=== PATIENT | female | born 1940 | race Two or more races ===

== ENCOUNTER 2017-02-10 05:59 | Emergency (ER) | payer OTHER ==
[~2017-02-10] VITALS: Ht 149.9 cm; Wt 98.9 kg
[~2017-02-10 05:59] MED LIST: ALB5IS NEB; ASPI81CH43 PO; BENZ100C97 PO; DEXT1SYP6 PO; DOXY1CAP82 PO; GABA-339 PO; IMI25T PO; IPRASOL39 IN; LEVO112T4 PO; LEVO125T7 PO; LEVO250T69 PO; LORA-354 PO; LOSA25TA9 PO; LOVA20TA63 PO; METF-370 PO; METH4PAK PO; OMEP20TA34 PO; PRED1PAK10 PO; TRIATAB3 PO
[2017-02-10 06:51] LABS: Albumin 3.5 g/dL (3.4-5.0); Anion Gap 8 (5-15); Aspartate Aminotransferase 13 U/L (15-37); BUN/Creatinine Ratio 16.9; Blood Urea Nitrogen 14 mg/dL (7-18); Calcium 8.5 mg/dL (8.5-10.1); Carbon Dioxide 27 mmol/L (21-32); Chloride 105 mmol/L (98-107); GFR African American 86 mL/min; GFR Non-African American 71 mL/min; Glucose 99 mg/dL (74-106); Potassium 3.9 mmol/L (3.5-5.1); Sodium 140 mmol/L (136-145)
[2017-02-10 06:56] LABS: Alkaline Phosphatase 71 U/L (45-117); Bilirubin, Total 0.8 mg/dL (0.2-1.0); Total Protein 7.2 g/dL (6.4-8.2)
[2017-02-10 07:30] VITALS: BP 140/71
[2017-02-10 07:31] LABS: Urine RBC None Seen /hpf (0 - 4)
[2017-02-10 07:40] LABS: Basophils # (auto) 0.1 uL; Basophils % (auto) 0.8 % (0.0-2.0); Eosinophils # (auto) 0.3 uL; Eosinophils % (auto) 4.5 % (0.0-7.0); Hematocrit 39.5 % (36.0-46.0); Lymphocytes # (auto) 2.1 uL; Lymphocytes % (auto) 29.3 % (10.0-50.0); Mean Corpuscular Hemoglobin 29.3 pg (28.0-32.0); Mean Corpuscular Hgb Conc. 32.9 g/dL (32.0-36.0); Mean Platelet Volume 7.5 fL (6.9-10.8); Monocytes # (auto) 0.6 uL; Monocytes % (auto) 8.3 % (0.0-12.0); Neutrophils # (auto) 4.2 uL; Neutrophils % (auto) 57.1 % (37.0-80.0); Nucleated Red Blood Cells % 0.1 %; Platelet Count (auto) 223 10^3/uL (140-450); Red Cell Distribution Width 14.5 % (11.8-14.3); White Blood Cell 7.3 10^3/uL (4.4-10.8)
[2017-02-10 07:40] LABS: Urine Bilirubin Negative (Negative); Urine Blood Negative /uL (Negative); Urine Color Yellow (Yellow); Urine Glucose Normal (Normal); Urine Ketone Negative (Negative); Urine Nitrite Negative (Negative); Urine Squamous Epithelial Cell FEW /hpf (<5); Urine Urobilinogen Normal (Negative)
[2017-02-10] MEDS ORDERED: SODIUM CHLORIDE 0.9% 1,000 ML IV ONE (07:55)
[2017-02-10] MEDS ORDERED: IPRATROPIUM BROM 0.5 MG/2.5ML INH SOL NEB ONE (08:00)
[2017-02-10] MEDS ORDERED: ALBUTEROL SULF 2.5 MG/0.5ML(0.5%) NEB SOLN NEB ONE (08:00)
== END 2017-02-10 10:23 | disposition home or self-care (01) ==
LOC: ER 06:05
DX: J45.901 Unspecified asthma with (acute) exacerbation (principal); E66.01 Morbid (severe) obesity due to excess calories; E11.9 Type 2 diabetes mellitus without complications; K21.9 Gastro-esophageal reflux disease without esophagitis; E78.5 Hyperlipidemia, unspecified; I10 Essential (primary) hypertension; E07.89 Other specified disorders of thyroid; Z68.41 Body mass index [BMI] 40.0-44.9, adult
CPT/HCPCS: 36415; 71020; 80053; 81001; 83735; 84443; 84484; 85025; 93005; 94640; 94761; 96360; 96361; 99285; J7030

== ENCOUNTER 2018-05-17 15:47 | Emergency (ER) | payer OTHER ==
[~2018-05-17] VITALS: Ht 157.5 cm; Wt 96.2 kg
[~2018-05-17 15:47] MED LIST changes: +DOXY-338 PO; -DOXY1CAP82 PO; +LOSA25TA40 PO; -LOSA25TA9 PO; -LOVA20TA63 PO; +[UNRECOGNIZED DRUG - CODE] PO
[2018-05-17 16:39] LABS: Basophils # (auto) 0 uL; Basophils % (auto) 0.5 % (0.0-2.0); Eosinophils # (auto) 0.1 uL; Eosinophils % (auto) 1.9 % (0.0-7.0); Hematocrit 41.6 % (36.0-46.0); Hemoglobin 13.6 g/dL (12.2-16.2); Lymphocytes # (auto) 1.8 uL; Lymphocytes % (auto) 25.4 % (10.0-50.0); Mean Corpuscular Hemoglobin 28.9 pg (28.0-32.0); Mean Corpuscular Hgb Conc. 32.7 g/dL (32.0-36.0); Mean Corpuscular Volume 88.4 fL (80.0-100.0); Monocytes # (auto) 0.7 uL; Monocytes % (auto) 9.6 % (0.0-12.0); Neutrophils # (auto) 4.5 uL; Neutrophils % (auto) 62.6 % (37.0-80.0); Nucleated Red Blood Cells % 0.1 %; Platelet Count (auto) 251 10^3/uL (140-450); Red Cell Distribution Width 14.3 % (11.8-14.3); White Blood Cell 7.1 10^3/uL (4.4-10.8)
[2018-05-17 16:40] LABS: Urine Bacteria NONE SEEN /hpf (None Seen); Urine Blood Negative /uL (Negative); Urine Specific Gravity 1.013 (1.001-1.035); Urine WBC 1 /hpf (0 - 5)
[2018-05-17 16:46] LABS: Alanine Aminotransferase 23 U/L (13-56); Albumin 3.2 g/dL (3.4-5.0); Anion Gap 3 (5-15); Blood Urea Nitrogen 15 mg/dL (7-18); Calcium 8.9 mg/dL (8.5-10.1); Carbon Dioxide 32 mmol/L (21-32); Chloride 105 mmol/L (98-107); Glucose 97 mg/dL (74-106); Potassium 4.1 mmol/L (3.5-5.1); Sodium 140 mmol/L (136-145)
[2018-05-17 16:51] LABS: Alkaline Phosphatase 71 U/L (45-117); Aspartate Aminotransferase 15 U/L (15-37); BUN/Creatinine Ratio 16.5; Bilirubin, Total 0.5 mg/dL (0.2-1.0); GFR African American 77 mL/min; GFR Non-African American 64 mL/min; Total Protein 7.1 g/dL (6.4-8.2)
[2018-05-17] MEDS ORDERED: ASPirin-EC 81 mg tab PO ONE (17:45)
[2018-05-17] MEDS ORDERED: IOHEXOL 350 MG/ML 100ML IJ ONE (19:08)
[2018-05-17 22:00] VITALS: BP 148/58
== END 2018-05-17 21:55 | disposition home or self-care (01) ==
LOC: ER 15:48
DX: R07.9 Chest pain, unspecified (principal); J44.9 Chronic obstructive pulmonary disease, unspecified; E11.9 Type 2 diabetes mellitus without complications; K21.9 Gastro-esophageal reflux disease without esophagitis; E78.5 Hyperlipidemia, unspecified; I10 Essential (primary) hypertension; E07.9 Disorder of thyroid, unspecified; Z88.5 Allergy status to narcotic agent; Z88.0 Allergy status to penicillin; Z79.82 Long term (current) use of aspirin; Z79.899 Other long term (current) drug therapy
CPT/HCPCS: 36415; 71046; 71275; 80053; 81001; 83880; 84484; 85025; 85379; 93005; 99284; Q9967

== ENCOUNTER 2018-11-07 23:57 | Emergency (ER) | payer OTHER ==
[~2018-11-07] VITALS: Ht 157.5 cm; Wt 79.4 kg
[~2018-11-07 23:57] MED LIST changes: +LOSA25TA38 PO; -LOSA25TA40 PO; +OMEP-337 PO; -OMEP20TA34 PO
[2018-11-08 00:23] VITALS: BP 142/38
[2018-11-08 01:43] LABS: Basophils # (auto) 0.1 uL; Basophils % (auto) 0.9 % (0.0-2.0); Eosinophils # (auto) 0.2 uL; Eosinophils % (auto) 2.8 % (0.0-7.0); Hematocrit 37.4 % (36.0-46.0); Lymphocytes # (auto) 2.7 uL; Mean Corpuscular Hemoglobin 29.7 pg (28.0-32.0); Mean Corpuscular Hgb Conc. 34.9 g/dL (32.0-36.0); Mean Corpuscular Volume 85.2 fL (80.0-100.0); Monocytes # (auto) 0.8 uL; Monocytes % (auto) 10.8 % (0.0-12.0); Neutrophils # (auto) 3.9 uL; Neutrophils % (auto) 50.5 % (37.0-80.0); Nucleated Red Blood Cells % 0.1 %; Platelet Count (auto) 207 10^3/uL (140-450); Red Blood Cells 4.39 10^6/uL (4.0-5.20); Red Cell Distribution Width 13.9 % (11.8-14.3); White Blood Cell 7.7 10^3/uL (4.4-10.8)
[2018-11-08 02:02] LABS: Urine Bacteria NONE SEEN /hpf (None Seen); Urine Blood Negative /uL (Negative); Urine Hyaline Cast MOD /lpf (0 - 2); Urine Specific Gravity 1.019 (1.001-1.035); Urine WBC 1 /hpf (0 - 5)
[2018-11-08 02:07] LABS: Alanine Aminotransferase 18 U/L (13-56); Albumin 3.8 g/dL (3.4-5.0); Anion Gap 9 (5-15); Aspartate Aminotransferase 18 U/L (15-37); BUN/Creatinine Ratio 17.2; Blood Urea Nitrogen 33 mg/dL (7-18); Calcium 7.8 mg/dL (8.5-10.1); Carbon Dioxide 28 mmol/L (21-32); Chloride 94 mmol/L (98-107); GFR African American 33 mL/min; GFR Non-African American 27 mL/min; Glucose 96 mg/dL (74-106); Potassium 3.8 mmol/L (3.5-5.1); Sodium 131 mmol/L (136-145)
[2018-11-08 02:12] LABS: Alkaline Phosphatase 59 U/L (45-117); Bilirubin, Total 1.1 mg/dL (0.2-1.0); INR < 0.93 (0.9-1.15); Total Protein 7.1 g/dL (6.4-8.2)
== END 2018-11-08 05:38 | disposition left against medical advice (07) ==
LOC: ER 11-08
DX: R07.2 Precordial pain (principal); Z53.21 Procedure and treatment not carried out due to patient leaving prior to being seen by health care provider
CPT/HCPCS: 36415; 71045; 80053; 81001; 83880; 84484; 85025; 85610; 85730; 93005

== ENCOUNTER 2024-06-11 09:22 | Inpatient (IN) | payer OTHER, MEDICAID ==
[2024-06-11] VITALS (12 sets, daily range): BP systolic 113–153; BP diastolic 34–74; PULSE 55–75; RESP 13–20; TEMP 97.2–98.3; O2SAT 94–99
[~2024-06-11] VITALS: Ht 154.9 cm; Wt 101.0 kg
[~2024-06-11 09:22] MED LIST changes: +ALBU0.636 IN; -DOXY-338 PO; +DOXY1CAP58 PO; -IMI25T PO; +IMIP25TA12 PO; +LEVO250T58 PO; -LEVO250T69 PO; +LOSA-533 PO; -LOSA25TA38 PO
[2024-06-11 10:51] LABS: Basophils # (auto) 0.1 10 ^3/uL (0-0.2); Basophils % (auto) 0.9 % (0.0-2.0); Eosinophils # (auto) 0.1 10 ^3/uL (0-0.8); Eosinophils % (auto) 1.7 % (0.0-7.0); Hematocrit 38.3 % (36.0-46.0); Hemoglobin 12.9 g/dL (12.2-16.2); Lymphocytes # (auto) 1.9 10 ^3/uL (0.4-5.4); Lymphocytes % (auto) 31.2 % (10.0-50.0); Mean Corpuscular Hemoglobin 29.6 pg (28.0-32.0); Mean Corpuscular Hgb Conc. 33.5 g/dL (32.0-36.0); Mean Corpuscular Volume 88.3 fL (80.0-100.0); Monocytes # (auto) 0.4 10 ^3/uL (0-1.3); Monocytes % (auto) 7.4 % (0.0-12.0); Neutrophils # (auto) 3.5 10 ^3/uL (1.6-8.6); Neutrophils % (auto) 58.8 % (37.0-80.0); Nucleated Red Blood Cells % 0.1 %; Platelet Count (auto) 220 10^3/uL (140-450); Red Blood Cells 4.34 10^6/uL (4.0-5.20); Red Cell Distribution Width 15.1 % (11.8-14.3)
--- NOTE | 2024-06-11 11:04 | ED.PDOC ---
History of Present Illness HPI Comments 83 y/o morbidly obese F, with a history of asthma, breast cancer, bronchitis, COPD, DM, GERD, HLD, HTN, PNA, and thyroid disease, is BIBA for c/o chest, back, left-arm, and head pain, today. Patient endorses on sudden and unprovoked onset of symptoms, this morning, at around 0000. She comments on back and left-arm pain radiating from her sternal chest area, where pain started, initially, with. Patient reports having no prior history of similar symptoms in the past along with no recent ailments, stressors, strenuous activities, or sick contact. She denies any shortness of breath, palpitations, nausea, vomiting, fever, chills, or other associated symptoms or modifiers at this time. Chief Complaint: Chest Pain Time Seen by MD: 10:15 Primary Care Provider: JOSSUE Reviewed Notes: Nurses Notes, Area Operations Director Notes, Medications, Allergies Allergies: Coded Allergies: Codeine (Verified Allergy, Unknown, 06/03/16) Penicillins (Verified Allergy, Unknown, 06/03/16) Home Meds Active Scripts Albuterol Sulfate (Albuterol Sulfate) 0.63 Mg/3 Ml Neb, 0.63 MG IN Q6HWA, #20 INH Prov:DINORAH GAGNON MD 02/04/19 Methylprednisolone (Medrol Dosepak) 4 Mg Ben, 4 MG PO DIRECTED, #1 PACK Prov:LINDSEY PENDLETON MD 06/08/16 Ipratropium [place] (Ipratropium [place]) Inhal Kindra, 0.5 MG IN Q6HPRN PRN, #120 DOSE Prov:LINDSEY PENDLETON MD 06/08/16 Dextromethorphan-Guaifenesin (Guaifenesin/Dextromethorp 10-100 mg/5Ml) 1 Syp Syp, 10 ML PO Q4HPRN PRN, #1 BOTTLE Prov:LINDSEY PENDLETON MD 06/08/16 Doxycycline (Monohydrate) (Doxycycline) 100 Mg Cap, 100 MG PO Q12HR, #14 CAP Prov:LINDSEY PENDLETON MD 06/08/16 Albuterol Sulfate (Ventolin) 2.5 Mg/0.5 Ml Nb, 2.5 MG NEB Q6HR, #120 DOSE Prov:LINDSEY PENDLETON MD 06/08/16 Levofloxacin Hemihydrate (LEVOFLOXACIN) 250 Mg Tab, 250 MG PO DAILY, #7 TAB Prov:DINORAH GAGNON MD 06/05/16 Prednisone (Prednisone) 10 Mg Ben, 10 MG PO DAILY, #10 TAB Prov:DINORAH GAGNON MD 06/05/16 Albuterol Sulfate (Ventolin) 2.5 Mg/0.5 Ml Nb, 2.5 MG NEB Q6HR PRN, #30 VIAL Prov:DINORAH GAGNON MD 06/05/16 Reported Medications Imipramine Hcl (Tofranil) 25 Mg Tb, 25 MG PO BID 06/07/16 Triamterene & Hydrochlorothiaz (Maxzide-25) Tab, 37.5 MG PO DAILY, TAB 06/07/16 Levothyroxine Sodium (Levothyroxine Sodium) 112 Mcg Tab, 112 MCG PO QAM for 30 Days, MCG 06/04/16 Benzonatate (Benzonatate) 100 Mg Cap, 1 CAP PO TID, #30 CAP 06/04/16 Gabapentin (Gabapentin) 600 Mg Tab, 1 TAB PO TID, #90 TAB 3 Refills 06/04/16 Loratadine (Sb Loratadine Allergy Rel) 10 Mg Tab, 10 MG PO DAILY, #30 TAB 5 Refills 06/04/16 Levothyroxine Sodium (Levothyroxine Sodium) 125 Mcg Tab, 1 TAB PO DAILY, #30 TAB 5 Refills 06/04/16 Losartan Potassium (Losartan Potassium) 25 Mg Tab, 50 MG PO DAILY 01/27/12 Lovastatin (Altoprev) 20 Mg Tab, 20 MG PO OD 01/27/12 Aspirin (Asa) 81 Mg Ch, 81 MG PO OD 01/27/12 Metformin Hydrochloride (Metformin Hcl) 500 Mg Tab, 500 MG PO DAILY 01/27/12 Omeprazole (Eq Omeprazole) 20 Mg Tab, 40 MG PO DAILY 08/10/11 Information Source: Patient, Emergency Med Personnel Mode of Arrival: EMS Severity: Moderate Timing: Hours Duration: Since onset Prehospital treatment: 12 Lead EKG, Accucheck (145), ASA (324mg), Office Coordinator, IVF (via 18G LAC) Past Medical History PAST MEDICAL HISTORY: Asthma, Cancer (breast cancer ), COPD, Depression, DM, GERD, High Lipids, HTN, Thyroid Past Medical History (Other): PNA bronchitis morbid obesity Surgical History (Other): right shoulder surgery FLAME CUTTER History: Denies all FLAME CUTTER Hx, No Pertinent FLAME CUTTER History Family History Family History: No family hx of Cancer, No family hx of DM, No family hx of Heart horace, No family hx ofKidney horace, No family hx of Liver horace, No family hx of Lung horace, No family hx of Stroke, Family hx of HTN Social History Smoker: Non-Smoker Alcohol: Denies ETOH Use Drugs: Denies Drug Use Lives In: Home All Other Systems: Reviewed and Negative (Comprehensive systems review obtained and negative except for what is stated in the HPI.) Physical Exam General Appearance: Moderate Distress HEENT: Normal ENT Inspection, Pharynx Normal, TMs Normal Neck: Full Range of Motion, Non-Tender, Normal, Normal Inspection Respiratory: Chest Non-Tender, Lungs Clear, No Accessory Muscle Use, No Respiratory Distress, Normal Breath Sounds Cardiovascular: No Edema, No JVD, No Murmur, No Gallop, Normal Peripheral Pulses, Regular Rate/Rhythm Breast Exam: Deferred Gastrointestinal: No Organomegaly, Non Tender, No Pulsatile Mass, Normal Bowel Sounds, Soft Genitalia: Deferred Pelvic: Deferred Rectal: Deferred Extremities: No calf tenderness, Normal range of motion, No pedal edema Musculoskeletal : Apperance: Normal Neurologic: Alert, No Motor Deficits, No Sensory Deficits Cerebellar Function: NOT DONE Reflexes: NOT DONE Skin: Dry, Normal Color, Warm Peripheral Pulses: 3+ Radial (R), 3+ Radial (L) Lymphatic: No Adenopathy Was a procedure done? Was a procedure done?: No EKG EKG #1: Pulse Rate (adult): 89 [place]: Normal Cardiac Rhythm: NSR Block: None Hypertrophy: None ST: Normal EKG #2: Pulse Rate (adult): 91 [place]: Normal Cardiac Rhythm: NSR Block: None Hypertrophy: None ST: Normal Differential Dx Considerations may include: CA, PE, ACS, URI, PNA, angina, anxiety, costochondritis, pericarditis, viral syndrome, gastritis, among others X-Ray, Labs, Meds, VS Vital Signs Date Time Temp Pulse Resp B/P (MAP) Pulse Ox O2 Delivery O2 Flow Rate FiO2 06/11/24 11:49 136/74 06/11/24 11:48 61 16 136/74 06/11/24 11:04 91 06/11/24 10:06 91 06/11/24 09:29 98.6 84 16 140/105 (117) 96 98.6 06/11/24 09:22 89 Lab Test 06/11/24 11:36 06/11/24 11:22 06/11/24 10:32 Range/Units White Blood Count 6.2 6.0 4.4-10.8 10^3/uL Red Blood Count 4.38 4.34 4.0-5.20 10^6/uL Hemoglobin 12.8 12.9 12.2-16.2 g/dL Hematocrit 39.1 38.3 36.0-46.0 % Mean Corpuscular Volume 89.3 88.3 80.0-100.0 fL Mean Corpuscular Hemoglobin 29.3 29.6 28.0-32.0 pg Mean Corpuscular Hemoglobin Concent 32.8 33.5 32.0-36.0 g/dL Red Cell Distribution Width 14.8 H 15.1 H 11.8-14.3 % Platelet Count 214 220 140-450 10^3/uL Mean Platelet Volume 6.9 6.9 6.9-10.8 fL Neutrophils (%) (Auto) 56.2 58.8 37.0-80.0 % Lymphocytes (%) (Auto) 32.5 31.2 10.0-50.0 % Monocytes (%) (Auto) 8.7 7.4 0.0-12.0 % Eosinophils (%) (Auto) 1.9 1.7 0.0-7.0 % Basophils (%) (Auto) 0.7 0.9 0.0-2.0 % Neutrophils # (Auto) 3.5 3.5 1.6-8.6 10 ^3/uL Lymphocytes # (Auto) 2.0 1.9 0.4-5.4 10 ^3/uL Monocytes # (Auto) 0.5 0.4 0-1.3 10 ^3/uL Eosinophils # (Auto) 0.1 0.1 0-0.8 10 ^3/uL Basophils # (Auto) 0 0.1 0-0.2 10 ^3/uL Nucleated Red Blood Cells 0.0 0.1 % Troponin I High Sensitivity 895 *H 490 *H </=34 ng/L Sodium Level 139 136-145 mmol/L Potassium Level 4.0 3.5-5.1 mmol/L Chloride Level 105 98-107 mmol/L Carbon Dioxide Level 26 20-31 mmol/L Anion Gap 8 5-15 Blood Urea Nitrogen 22 9-23 mg/dL Creatinine 1.10 H 0.550-1.02 mg/dL Glomerular Filtration Rate Calc 50 >90 mL/min BUN/Creatinine Ratio 20.0 10.0-20.0 Serum Glucose 111 H 74-106 mg/dL Calcium Level 9.7 8.7-10.4 mg/dL Current Medications Medications (Trade) Dose Ordered Sig/Elsi Route Start Time Stop Time Status Last Admin Aspirin 325 mg ONCE ONCE PO 06/11/24 11:30 06/11/24 11:31 DC 06/11/24 11:49 Nitroglycerin (Ntrostat Sublingual) 0.4 mg ONCE ONCE SL 06/11/24 11:30 06/11/24 11:31 DC 06/11/24 11:49 Morphine Sulfate 2 mg ONCE ONCE IV 06/11/24 11:30 06/11/24 11:31 DC 06/11/24 11:48 Ondansetron HCl (Zofran) 4 mg ONCE ONCE IV 06/11/24 11:30 06/11/24 11:31 DC 06/11/24 11:49 Enoxaparin Sodium (Lovenox) 100 mg ONCE ONCE SC 06/11/24 12:00 06/11/24 12:01 DC 06/11/24 12:21 Patient alert. Complaining of chest pain. EKG reviewed does not show any acute process. Vitals stable. Answering questions. Has risk factors for coronary artery disease. WBC within normal limits. Hemoglobin within normal limits. Blood pressure elevated. Was given morphine. Was given Zofran. Was given aspirin. Was given nitro. Reviewed her history. Explained to the patient. Continue cardiac monitoring. Cardiac marker elevated. Was given Lovenox. Cardiology consultation. Time of 1ST Reevaluation: 10:45 Reevaluation 1ST: Unchanged Patient Education/Counseling: Diagnosis, Treatment Family Education/Counseling: No Family Present Additional Information Previous medical encounters reviewed: January 20, 2019 encounter for bronchitis The following tests were ordered, and results were reviewed by me: BMP, CBC, EKG, UA, troponin Additional Information was gathered from interviewing the following independent historians: n/a I reviewed and agreed with the following test results read by other providers: n/a I discussed treatment and results with medical personnel and: Patient Departure 1 Departure Time of Disposition: 11:17 Impression: Primary Impression: Chest pain of unknown etiology Additional Impressions: HTN (hypertension) Qualified Codes: I10 - Essential (primary) hypertension NSTEMI (non-ST elevated myocardial infarction) Disposition: ADMITTED INPATIENT Admit to: Med Surg Condition: Guarded Critical Care Note Critical Care Time?: Yes (90 min-critical care time only) Critical care comment: Continues to have chest pain has risk factors Stability Stability form required: No Heart Score Heart Score: Heart Score Response (Comments) Value History Moderate Suspicious 1 EKG Normal 0 Age >65 2 Risk Factors >3 or Hx ASHD 2 Troponin >3 x's Normal limit 2 Total 7 I personally scribed for DANNA MCKEON MD ([email or web address]) on 06/11/24 at 11:04. Electronically submitted by Ramon Kinsey [email or web address]). DANNA MCKEON MD Jun 11, 2024 11:04
[2024-06-11 11:10] LABS: Chloride 105 mmol/L (98-107); Sodium 139 mmol/L (136-145)
[2024-06-11 11:11] LABS: Anion Gap 8 (5-15); Carbon Dioxide 26 mmol/L (20-31)
[2024-06-11 11:12] LABS: Calcium 9.7 mg/dL (8.7-10.4)
[2024-06-11 11:16] LABS: Blood Urea Nitrogen 22 mg/dL (9-23)
[2024-06-11 11:28] LABS: Glucose 111 mg/dL (74-106)
[2024-06-11] MEDS: MORPHINE SULFATE INJ 2 MG/ml SYRG IV ONE (11:48)
[2024-06-11] MEDS: ONDANSETRON HCL 4 MG/2 ML VIAL IV ONE (11:49)
[2024-06-11] MEDS: ASPirin 325 MG TAB PO ONE (11:49)
[2024-06-11] MEDS: NITROGLYCERIN 0.4 MG SL TAB SL ONE (11:49)
[2024-06-11 12:05] LABS: Basophils # (auto) 0 10 ^3/uL (0-0.2); Basophils % (auto) 0.7 % (0.0-2.0); Eosinophils # (auto) 0.1 10 ^3/uL (0-0.8); Eosinophils % (auto) 1.9 % (0.0-7.0); Hematocrit 39.1 % (36.0-46.0); Hemoglobin 12.8 g/dL (12.2-16.2); Lymphocytes % (auto) 32.5 % (10.0-50.0); Mean Corpuscular Hemoglobin 29.3 pg (28.0-32.0); Mean Corpuscular Hgb Conc. 32.8 g/dL (32.0-36.0); Mean Corpuscular Volume 89.3 fL (80.0-100.0); Monocytes # (auto) 0.5 10 ^3/uL (0-1.3); Monocytes % (auto) 8.7 % (0.0-12.0); Neutrophils # (auto) 3.5 10 ^3/uL (1.6-8.6); Neutrophils % (auto) 56.2 % (37.0-80.0); Platelet Count (auto) 214 10^3/uL (140-450); Red Blood Cells 4.38 10^6/uL (4.0-5.20); Red Cell Distribution Width 14.8 % (11.8-14.3); White Blood Cell 6.2 10^3/uL (4.4-10.8)
[2024-06-11] MEDS: ENOXAPARIN SOD 100 MG/1 ML SYRINGE SC ONE (12:21)
--- NOTE | 2024-06-11 13:12 | DVHINCON2 ---
LIO WOOD[facility] 06/11/24 1311: Date Seen: Jun 11, 2024 Referring Physician MD Zain Reason for Consultation NSTEMI History of Present Illness This is a pleasant Amharic-speaking 83-year-old female patient who presents to emergency room with chief complaint of worsening chest pain. The patient reports that the chest pain began at approximately 1:00 a.m. this morning while she was trying to fall asleep. She describes the pain as unprovoked, constant, pressure-like in nature, substernal with radiation to her back and down her left arm. Associated symptoms include shortness of breath. The patient asked her to call EMS and the patient was brought to the emergency room for further evaluation. Initial twelve lead electrocardiogram done upon emergency room arrival reveals normal sinus rhythm with nonspecific ST segment changes to inferolateral leads. Initial troponin level of 490ng/L with up trend and current peak level at 895ng/L. Significant past medical history includes hypertension, dyslipidemia, COPD, type 2 diabetes mellitus, thyroid disease, breast cancer status post right lumpectomy, and morbid obesity. The patient states recently seeing her oncologist and was told that she is currently cancer free. The patient also reports following up with a hair blender in the past, but never underwent any kind of ischemic workup. Past Medical History Past medical history reviewed. No other significant than mentioned above. Past Surgical History Right breast lumpectomy in 2023 Right shoulder repair Bladder lift with mesh Family History: Diabetes mellitus G8 MOTHER Family history: Cardiovascular disease G8 MOTHER Family history: Diabetes mellitus G8 FATHER Family history: Hypertension G8 MOTHER Hypertension G8 MOTHER G8 FATHER Family History Family history reviewed. Social History Denies the use of tobacco, alcohol or illicit drugs. Allergies: Coded Allergies: Codeine (Verified Allergy, Unknown, 06/03/16) Penicillins (Verified Allergy, Unknown, 06/03/16) Home Meds Active Scripts Albuterol Sulfate (Albuterol Sulfate) 0.63 Mg/3 Ml Neb, 0.63 MG IN Q6HWA, #20 INH Prov:DINORAH GAGNON MD 02/04/19 Methylprednisolone (Medrol Dosepak) 4 Mg Ben, 4 MG PO DIRECTED, #1 PACK Prov:LINDSEY PENDLETON MD 06/08/16 Ipratropium [place] (Ipratropium [place]) Inhal Kindra, 0.5 MG IN Q6HPRN PRN, #120 DOSE Prov:LINDSEY PENDLETON MD 06/08/16 Dextromethorphan-Guaifenesin (Guaifenesin/Dextromethorp 10-100 mg/5Ml) 1 Syp Syp, 10 ML PO Q4HPRN PRN, #1 BOTTLE Prov:LINDSEY PENDLETON MD 06/08/16 Doxycycline (Monohydrate) (Doxycycline) 100 Mg Cap, 100 MG PO Q12HR, #14 CAP Prov:LINDSEY PENDLETON MD 06/08/16 Albuterol Sulfate (Ventolin) 2.5 Mg/0.5 Ml Nb, 2.5 MG NEB Q6HR, #120 DOSE Prov:LINDSEY PENDLETON MD 06/08/16 Levofloxacin Hemihydrate (LEVOFLOXACIN) 250 Mg Tab, 250 MG PO DAILY, #7 TAB Prov:DINORAH GAGNON MD 06/05/16 Prednisone (Prednisone) 10 Mg Ben, 10 MG PO DAILY, #10 TAB Prov:DINORAH GAGNON MD 06/05/16 Albuterol Sulfate (Ventolin) 2.5 Mg/0.5 Ml Nb, 2.5 MG NEB Q6HR PRN, #30 VIAL Prov:DINORAH GAGNON MD 06/05/16 Reported Medications Imipramine Hcl (Tofranil) 25 Mg Tb, 25 MG PO BID 06/07/16 Triamterene & Hydrochlorothiaz (Maxzide-25) Tab, 37.5 MG PO DAILY, TAB 06/07/16 Levothyroxine Sodium (Levothyroxine Sodium) 112 Mcg Tab, 112 MCG PO QAM for 30 Days, MCG 06/04/16 Benzonatate (Benzonatate) 100 Mg Cap, 1 CAP PO TID, #30 CAP 06/04/16 Gabapentin (Gabapentin) 600 Mg Tab, 1 TAB PO TID, #90 TAB 3 Refills 06/04/16 Loratadine (Sb Loratadine Allergy Rel) 10 Mg Tab, 10 MG PO DAILY, #30 TAB 5 Refills 06/04/16 Levothyroxine Sodium (Levothyroxine Sodium) 125 Mcg Tab, 1 TAB PO DAILY, #30 TAB 5 Refills 06/04/16 Losartan Potassium (Losartan Potassium) 25 Mg Tab, 50 MG PO DAILY 01/27/12 Lovastatin (Altoprev) 20 Mg Tab, 20 MG PO OD 01/27/12 Aspirin (Asa) 81 Mg Ch, 81 MG PO OD 01/27/12 Metformin Hydrochloride (Metformin Hcl) 500 Mg Tab, 500 MG PO DAILY 01/27/12 Omeprazole (Eq Omeprazole) 20 Mg Tab, 40 MG PO DAILY 08/10/11 Home Meds Home medications reviewed. Review of Systems Constitutional: No symptom reported Ears, Nose, & Throat: No symptom reported Eyes: No symptom reported Neurological: No symptoms reported Pulmonary/Respiratory: Shortness of breath Cardiovascular: Chest pain Gastrointestinal: No symptom reported Genitourinary: No symptom reported Musculoskeletal: No symptom reported Skin: No symptom reported Psychiatric: No symptom reported Endocrine: No symptom reported Hematologic/Lymphatic: No symptom reported Vital Signs Vital Signs Date Time Temp Pulse Resp B/P (MAP) Pulse Ox O2 Delivery O2 Flow Rate FiO2 06/11/24 12:41 Room Air* 0 21 06/11/24 12:39 59 16 144/59 (87) 92 06/11/24 09:29 98.6 98.6 Physical Exam General Appearance: Cooperative. Morbidly obese Pulmonary/Respiratory: Clear, bilateral breaths sounds. Cardiovascular/Chest: Regular rate and rhythm. Peripheral Pulses: 2+ Radial (R). 2+ Radial (L). 2+ Pedal (R). 2+ Pedal (L) Abdominal Exam: Normal bowel sounds. Ankle Exam: Negative ankle edema Lower extremities: Negative lower extremity edema Neuro/Mental Status: A/OX4, coherent. Thoughts/Psych: Normal thought pattern. Appropriate mood and affect. Good judgment and insight. Appearance: No acute distress. Skin Exam: Normal inspection. Normal color. Warm and dry. Labs/Diagnostic Data Labs Test 06/11/24 11:36 06/11/24 11:22 06/11/24 10:32 Range/Units White Blood Count 6.2 4.4-10.8 10^3/uL Red Blood Count 4.38 4.0-5.20 10^6/uL Hemoglobin 12.8 12.2-16.2 g/dL Hematocrit 39.1 36.0-46.0 % Mean Corpuscular Volume 89.3 80.0-100.0 fL Mean Corpuscular Hemoglobin 29.3 28.0-32.0 pg Mean Corpuscular Hemoglobin Concent 32.8 32.0-36.0 g/dL Red Cell Distribution Width 14.8 H 11.8-14.3 % Platelet Count 214 140-450 10^3/uL Mean Platelet Volume 6.9 6.9-10.8 fL Neutrophils (%) (Auto) 56.2 37.0-80.0 % Lymphocytes (%) (Auto) 32.5 10.0-50.0 % Monocytes (%) (Auto) 8.7 0.0-12.0 % Eosinophils (%) (Auto) 1.9 0.0-7.0 % Basophils (%) (Auto) 0.7 0.0-2.0 % Neutrophils # (Auto) 3.5 1.6-8.6 10 ^3/uL Lymphocytes # (Auto) 2.0 0.4-5.4 10 ^3/uL Monocytes # (Auto) 0.5 0-1.3 10 ^3/uL Eosinophils # (Auto) 0.1 0-0.8 10 ^3/uL Basophils # (Auto) 0 0-0.2 10 ^3/uL Nucleated Red Blood Cells 0.0 % Troponin I High Sensitivity 895 *H </=34 ng/L Sodium Level 139 136-145 mmol/L Potassium Level 4.0 3.5-5.1 mmol/L Chloride Level 105 98-107 mmol/L Carbon Dioxide Level 26 20-31 mmol/L Anion Gap 8 5-15 Blood Urea Nitrogen 22 9-23 mg/dL Creatinine 1.10 H 0.550-1.02 mg/dL Glomerular Filtration Rate Calc 50 >90 mL/min BUN/Creatinine Ratio 20.0 10.0-20.0 Serum Glucose 111 H 74-106 mg/dL Calcium Level 9.7 8.7-10.4 mg/dL Assessment NSTEMI, rule out coronary artery disease Hypertension Rule out structural heart disease Dyslipidemia COPD Type 2 diabetes mellitus Thyroid disease Morbid obesity Plan/Recommendation We will continue with following plan/recommendations (Dr. Herndon): * Echocardiogram to evaluate cardiac function * Chest pain protocol * HEART score: 9 points (high score) * ALICIA score: 5 points * Blood pressure control * Lipid-lowering agent * Close Cardiac surveillance * Coronary angiogram Case discussed with . Given the patient's clinical presentation, elevated troponin level, and significant twelve lead electrocardiogram, we will recommend for the patient undergo a coronary angiogram with left heart catheterization. The procedure was discussed with the patient in full detail including risks and benefits. Risks include but are not limited to bleeding, contrast-induced nephropathy, stroke, and even . The patient understands and is agreeable to undergo the procedure. We will schedule the patient at 1st availability on 06/11/24. Thank you for allowing us to care for this patient. Please call with any questions or concerns. Critical care time spent: 44 minutes This medical document was created using an electronic medical record system with voice recognition software and computerized dictation system. Although this document has been carefully reviewed, there might still be some phonetic and typographical errors. Occasional wrong-word or ``sound-alike substitutions may have occurred due to the inherent limitations of voice recognition software. These areas are purely typographical due to imperfections of the software programs and do not reflect any compromise in the patient's medical care. Please read the chart carefully and recognize, using context, where these substitutions have occurred. Plan discussed with: Patient, Spouse, Daughter NYHA Physical activity limitations: NA Date of Service: Jun 11, 2024 Billing Provider: LIO WOODWARD Cardiology Common Codes: 42019-GRZFHXQ INP/OBS CARE (High) Cardiology Consultation Codes: 82180-[id number] CONSULT <45MIN KASIA HERNDON MD 06/11/24 1638: Family History: Diabetes mellitus G8 MOTHER Family history: Cardiovascular disease G8 MOTHER Family history: Diabetes mellitus G8 FATHER Family history: Hypertension G8 MOTHER Hypertension G8 MOTHER G8 FATHER Allergies: Coded Allergies: Codeine (Verified Allergy, Unknown, 06/03/16) Penicillins (Verified Allergy, Unknown, 06/03/16) Home Meds Active Scripts Albuterol Sulfate (Albuterol Sulfate) 0.63 Mg/3 Ml Neb, 0.63 MG IN Q6HWA, #20 INH Prov:DINORAH GAGNON MD 02/04/19 Methylprednisolone (Medrol Dosepak) 4 Mg Ben, 4 MG PO DIRECTED, #1 PACK Prov:LINDSEY PENDLETON MD 06/08/16 Ipratropium [place] (Ipratropium [place]) Inhal Kindra, 0.5 MG IN Q6HPRN PRN, #120 DOSE Prov:LINDSEY PENDLETON MD 06/08/16 Dextromethorphan-Guaifenesin (Guaifenesin/Dextromethorp 10-100 mg/5Ml) 1 Syp Syp, 10 ML PO Q4HPRN PRN, #1 BOTTLE Prov:LINDSEY PENDLETON MD 06/08/16 Doxycycline (Monohydrate) (Doxycycline) 100 Mg Cap, 100 MG PO Q12HR, #14 CAP Prov:LINDSEY PENDLETON MD 06/08/16 Albuterol Sulfate (Ventolin) 2.5 Mg/0.5 Ml Nb, 2.5 MG NEB Q6HR, #120 DOSE Prov:LINDSEY PENDLETON MD 06/08/16 Levofloxacin Hemihydrate (LEVOFLOXACIN) 250 Mg Tab, 250 MG PO DAILY, #7 TAB Prov:DINORAH GAGNON MD 06/05/16 Prednisone (Prednisone) 10 Mg Ben, 10 MG PO DAILY, #10 TAB Prov:DINORAH GAGNON MD 06/05/16 Albuterol Sulfate (Ventolin) 2.5 Mg/0.5 Ml Nb, 2.5 MG NEB Q6HR PRN, #30 VIAL Prov:DINORAH GAGNON MD 06/05/16 Reported Medications Imipramine Hcl (Tofranil) 25 Mg Tb, 25 MG PO BID 06/07/16 Triamterene & Hydrochlorothiaz (Maxzide-25) Tab, 37.5 MG PO DAILY, TAB 06/07/16 Levothyroxine Sodium (Levothyroxine Sodium) 112 Mcg Tab, 112 MCG PO QAM for 30 Days, MCG 06/04/16 Benzonatate (Benzonatate) 100 Mg Cap, 1 CAP PO TID, #30 CAP 06/04/16 Gabapentin (Gabapentin) 600 Mg Tab, 1 TAB PO TID, #90 TAB 3 Refills 06/04/16 Loratadine (Sb Loratadine Allergy Rel) 10 Mg Tab, 10 MG PO DAILY, #30 TAB 5 Refills 06/04/16 Levothyroxine Sodium (Levothyroxine Sodium) 125 Mcg Tab, 1 TAB PO DAILY, #30 TAB 5 Refills 4/3/17 Losartan Potassium (Losartan Potassium) 25 Mg Tab, 50 MG PO DAILY 01/27/12 Lovastatin (Altoprev) 20 Mg Tab, 20 MG PO OD 01/27/12 Aspirin (Asa) 81 Mg Ch, 81 MG PO OD 01/27/12 Metformin Hydrochloride (Metformin Hcl) 500 Mg Tab, 500 MG PO DAILY 01/27/12 Omeprazole (Eq Omeprazole) 20 Mg Tab, 40 MG PO DAILY 08/10/11 Plan/Recommendation high risk nstemi with dyanmic ecg changes given lovenox high risk pt given morbid obesity and lovenox [facility] recommended felipe , pt agrees to plan 40 mins critical care time spent LIO WOODWARD Jun 11, 2024 13:11 KASIA HERNDON MD Jun 11, 2024 16:38
[2024-06-11] MEDS: HEPARIN IN NS 1000Units/500mL 1,500 ML ONE (13:23)
[2024-06-11] MEDS: IODIXANOL 320MG/ML 100ML BTL IV ONE (13:23)
[2024-06-11] MEDS: HEPARIN SODIUM (PORCINE) 5000 UNITS/ML 1ML VIAL ONE (13:32)
[2024-06-11] MEDS: VERAPAMIL 2.5MG/ML INJ 2ML VIAL IV ONE (13:32)
[2024-06-11] MEDS: ANGIOMAX 250 MG VIAL IV ONE (13:32)
[2024-06-11] MEDS: fentaNYL CITRATE 100 MCG/2 ML VL ONE (13:33)
[2024-06-11] MEDS: SODIUM CHL 0.9% 50 ML ONE (13:33)
[2024-06-11] MEDS: LIDOCAINE 2%HCL (LOCAL ANESTH.) INJ 20ML MDV ONE (13:33)
[2024-06-11] MEDS: MIDAZOLAM HCL 2MG/2ML 2ml VIAL (1mg/ml) ONE (13:33)
[2024-06-11 13:37] LABS: Urine Bacteria None Seen /hpf (None Seen)
[2024-06-11 13:46] LABS: Urine Blood TRACE /uL (Negative); Urine Clarity Clear (Clear); Urine Color Colorless (Yellow); Urine Protein, UAD 1+ (Negative); Urine Specific Gravity 1.005 (1.001-1.035); Urine Squamous Epithelial Cell FEW /hpf (<5); Urine Urobilinogen Normal (Negative); Urine WBC < 1 /HPF (0-5)
[2024-06-11 14:13] LABS: INR 0.95 (0.9-1.15); Prothrombin Time 10.1 sec (9.3-11.8)
--- NOTE | 2024-06-11 14:14 | DVH ---
EXAM: XY CHEST XRAY 1 VIEW Indication: Pain. Technique: Single frontal view of the chest was obtained Comparison: None FINDINGS: Lines and Tubes: None Lungs: No focal consolidation. Pleura: No effusion. No pneumothorax. Cardiomediastinal contours: Cardiomegaly. Bones: No acute osseous abnormality. IMPRESSION: Cardiomegaly. No acute cardiopulmonary disease.
[2024-06-11] MEDS: ATROPINE SULF 1 MG/10ml SYR ONE (15:00)
[2024-06-11] MEDS: TICAGRELOR 90 MG TAB ONE (15:00)
[2024-06-11] MEDS ORDERED: MORPHINE SULFATE INJ 2 MG/ml SYRG IV PRN (15:30)
[2024-06-11] MEDS ORDERED: ONDANSETRON HCL 4 MG/2 ML VIAL IV PRN (15:30)
[2024-06-11] MEDS ORDERED: HYDROcodone-ACET 5/325MG TAB PO PRN (15:30)
[2024-06-11] MEDS ORDERED: NITROGLYCERIN 0.4 MG SL TAB SL PRN (15:30)
--- NOTE | 2024-06-11 15:35 | DVHHP2 ---
History of Present Illness Reason for Visit: Chest pain since 1:00 a.m. History of Present Illness 83-year-old female with a known history of diabetes mellitus type 2, hypertension, dyslipidemia, COPD, hypothyroidism, history of breast cancer status post lumpectomy currently on oral chemotherapy has been daughter's information on the phone presented to the hospital with a squeezing left-sided chest pressure 10/10 since 1:00 a.m. found to have acute myocardial infarction. Patient was currently seen GI Cardiology and we will taken to tree tapping laborer. Patient denies any previous history of known coronary artery disease. Patient was currently denies any shortness of breath but still complaining of chest pain w hich is 6/10 in the left-sided without any radiation. Cardiovascular: HTN, hyperipidemia Pulmonary: COPD Heme/Onc: Cancer (Breast cancer status post lumpectomy) Endocrine: Diabetes, Hypothyroidism Past Surgical History: Other (Right breast cancer status post lumpectomy.) Family History: None Smoke: No ALCOHOL: none Review of Systems Review of Systems Twelve review of system were negative except mentioned above. Allergies: Coded Allergies: Codeine (Verified Allergy, Unknown, 06/03/16) Penicillins (Verified Allergy, Unknown, 06/03/16) Exam Vital Signs Vital Signs Date Time Temp Pulse Resp B/P (MAP) Pulse Ox O2 Delivery O2 Flow Rate FiO2 06/11/24 13:24 139/55 06/11/24 12:41 Room Air* 0 21 06/11/24 12:39 59 16 92 06/11/24 09:29 98.6 98.6 Labs/Xrays Labs Test 06/11/24 11:36 06/11/24 11:22 06/11/24 10:32 06/11/24 09:30 Range/Units White Blood Count 6.2 4.4-10.8 10^3/uL Red Blood Count 4.38 4.0-5.20 10^6/uL Hemoglobin 12.8 12.2-16.2 g/dL Hematocrit 39.1 36.0-46.0 % Mean Corpuscular Volume 89.3 80.0-100.0 fL Mean Corpuscular Hemoglobin 29.3 28.0-32.0 pg Mean Corpuscular Hemoglobin Concent 32.8 32.0-36.0 g/dL Red Cell Distribution Width 14.8 H 11.8-14.3 % Platelet Count 214 140-450 10^3/uL Mean Platelet Volume 6.9 6.9-10.8 fL Neutrophils (%) (Auto) 56.2 37.0-80.0 % Lymphocytes (%) (Auto) 32.5 10.0-50.0 % Monocytes (%) (Auto) 8.7 0.0-12.0 % Eosinophils (%) (Auto) 1.9 0.0-7.0 % Basophils (%) (Auto) 0.7 0.0-2.0 % Neutrophils # (Auto) 3.5 1.6-8.6 10 ^3/uL Lymphocytes # (Auto) 2.0 0.4-5.4 10 ^3/uL Monocytes # (Auto) 0.5 0-1.3 10 ^3/uL Eosinophils # (Auto) 0.1 0-0.8 10 ^3/uL Basophils # (Auto) 0 0-0.2 10 ^3/uL Nucleated Red Blood Cells 0.0 % Troponin I High Sensitivity 895 *H </=34 ng/L Prothrombin Time 10.1 9.3-11.8 sec Prothrombin Time INR 0.95 0.9-1.15 Activated Partial Thromboplast Time 27.0 24.5-34.5 SEC Sodium Level 139 136-145 mmol/L Potassium Level 4.0 3.5-5.1 mmol/L Chloride Level 105 98-107 mmol/L Carbon Dioxide Level 26 20-31 mmol/L Anion Gap 8 5-15 Blood Urea Nitrogen 22 9-23 mg/dL Creatinine 1.10 H 0.550-1.02 mg/dL Glomerular Filtration Rate Calc 50 >90 mL/min BUN/Creatinine Ratio 20.0 10.0-20.0 Serum Glucose 111 H 74-106 mg/dL Calcium Level 9.7 8.7-10.4 mg/dL Urine Color Colorless Yellow Urine Clarity Clear Clear Urine pH 7.0 5.0-9.0 Urine Specific [place] 1.005 1.001-1.035 Urine Protein 1+ H Negative Urine Ketones Negative Negative Urine Blood Trace H Negative /uL Urine Nitrite Negative Negative Urine Bilirubin Negative Negative Urine Urobilinogen Normal Negative mg/dL Urine Leukocyte Esterase Negative Negative /uL Urine RBC <1 0 - 4 /hpf Urine Microscopic WBC < 1 0-5 /HPF Urine Squamous Epithelial Cells Few <5 /hpf Urine Bacteria None seen None Seen /hpf Urine Glucose Normal Normal mg/dL Assessment/Plan Assessment/Plan 83 year old female with a known history of diabetes mellitus type 2, hypertension, dyslipidemia, COPD, hypothyroidism, breast cancer status post lumpectomy currently on oral chemotherapy presented to the hospital with chest p ressure found to have 1. Acute myocardial infarction/non ST-elevation [place] 2. Diabetes mellitus type 2 3. Hypertension Four dyslipidemia 5. Hypothyroidism 6. COPD not in exacerbation 7. Breast cancer status post lumpectomy currently on oral chemotherapy -admit to [facility], has been statin Brilinta, cardiology consultation -patient was will be going to tree tapping laborer for left heart catheterization. -plan of care discussed with the patient and patient's spouse at bedside, has been as daughter on the phone. The currently understand verbalized understanding and agreeable to plan. Plan discussed with: Patient, Spouse My Orders Orders - SANTIAGO MENDEZ MD Procedure Category Date Status Time Admit ADMIT 06/11/24 Transmitted 15:28 0.9% Ns 1000 Ml PHA 06/11/24 Transmitted 15:30 Hydrocodone-Acet PHA 06/11/24 Transmitted 5/325mg Tab ([place] 15:30 Ondansetron Hcl PHA 06/11/24 Transmitted (Zofran) 15:30 Comprehensive LAB 06/12/24 Verified Metabolic Panel 04:00 Npo (Nothing By DIET 06/11/24 Transmitted Mouth) Diet Dinner Condition: Stable SONIA 06/11/24 In Process 15:28 Acetaminophen Tablet PHA 06/11/24 Transmitted (Tylenol Tablet) 15:30 Morphine Sulfate PHA 06/11/24 Transmitted Injection 15:30 Nitroglycerin PHA 06/11/24 Transmitted Sublingual (Ntrostat 15:30 Morphine Sulfate PHA 06/11/24 Transmitted Injection 15:30 Stat Ekg For Chest SONIA 06/11/24 In Process Pain 15:28 Notify Md Of Changes SONIA 06/11/24 In Process From Base 15:28 Trim Attacher For SONIA 06/11/24 In Process 24 Hours 15:28 Emergency Dysrhythmia SONIA 06/11/24 In Process Protocol 15:28 Rhythm Strips Once SONIA 06/11/24 In Process Every Shift 15:28 Oxygen By Nasal RT 06/11/24 Transmitted Cannula 15:28 Date of Service: Jun 11, 2024 Billing Provider: SANTIAGO MENDEZ MD Common Visit Codes: NOT BILLABLE SANTIAGO MENDEZ MD Jun 11, 2024 15:35
--- NOTE | 2024-06-11 16:26 | DVHOP2 ---
Operative Report Operative Report CARDIAC PRACTICE MANAGER PROCEDURE REPORT [place], [place] Date of Service: 06/11/24 Director Of Informatics: Kasia Herndon MD PROCEDURES PERFORMED: Coronary angiogram, left heart catheterization, conscious sedation administration and supervision, less than 15 minutes; fluoroscopy use and interpretation. conscious sedatin 30-44 mins, sedation 16-30 mins, PTCA 1 vessel, PCI 1 vessel, acute TN intervention PREOPERATIVE DIAGNOSES: ACS/ high risk nstemi POSTOP DIAGNOSIS: severe cad DESCRIPTION OF PROCEDURE: The patient or appropriate family signed informed c onsent understanding the risks, benefits and alternatives of the procedure, they wished to proceed. The patient was brought to the cardiac manufacturing laborer in n.p.o. state. The patient was prepped in a sterile fashion. Sedation was used per cardiac cath protocol. I administered 2 mL of 2% lidocaine to the right wrist. With an antegrade front wall puncture. I cannulated the right radial artery and placed a 6-[place] Glidesheath slender. Next, an intra-arterial spasmolytic was administered. Next, a - 6French [place] catheter andJR 4 guide and were used for coronary angiogram and LVEDP measurement and pressure pullback. At the completion of procedure, all guides and wires were removed, and there were no immediate complications. FINDINGS: RCA: Moderate vessel off the right sinus of Valsalva, there is prox RCA 40% stenosis, mid RCA has a 60-70% stenosis and distal RCA has a ruptured plaque 95% lesion LEFT MAIN: Moderate size left main, it bifurcates into LAD and circumflex. 30% distal LM stenosis CIRCUMFLEX: Moderate caliber vessel coming off the left main with no flow limiting stenosis. mid CX has moderate diffuse 55-60% stenosis, very small vessel barely 2 mm in size with diffuse OM disease LAD: LAD is a moderate caliber vessel coming of the left main. ostium and prox LAD at diag 1 bifurcation has a sequential 50% stenosis mid to distal LAD has mild plaque. INTERVENTION: We decided to proceed with coronary intervention. I started with a 6F __JR4 __ Guide to intubate the _RCA _. Angiomax bolus and gtt was started. Following this, I decided to wire using an .014 BMW across the culprit lesion with ease. At this time, we performed balloon angioplasty with a _2.5 x 15 mm balloon __12 __ ATMS over __15__ seconds with __2__ number of inflations. Following this, I decided to place two stents given long diffuse disease stent using a 3.5 x 30 mm distally and another 3.5 x 30 mm proximally mm onyx____ stent inflated up to __16___ ATMS over 15 seconds with two separate inflations. Following this, the stent balloon removed and angio performed showing 0% residual stenosis. ALICIA pre/post: 3./3 CONCLUSIONS: 1. PCI to 95% mid to distal RCA stenosis and 2 stents placed 2. diffuse moderate L sided disease PLAN: Aggressive risk factor modification and medical management for the patient. DAPT x 1 year uninterrupted KASIA HERNDON MD Jun 11, 2024 16:26
[2024-06-11] MEDS: LOSARTAN POTASSIUM 25 MG TAB PO SCH (16:30)
[2024-06-11] MEDS ORDERED: hydrALAZINE HCL 20 MG/ML VL IV PRN (16:30)
[2024-06-11] MEDS ORDERED: DEXTROSE (50%) 50ML SYRG IV PRN (16:45)
[2024-06-11] MEDS: InsuLIN REG 1unit/0.01ml Soln (100units/ml) SC SCH ×2 (17:00→22:00)
[2024-06-11] MEDS: ACCU-CHEK COMFORT CURVE STRIP VI SCH (17:00)
[2024-06-11] MEDS: SODIUM CHLORIDE 0.9% 1,000 ML IV SCH (17:46)
[2024-06-11] MEDS ORDERED: ANAS1TAB7 PO (18:09)
--- NOTE | 2024-06-11 18:42 | ECG ---
[facility] Test Date: 2024-06-11 Test Time: 09:21:17 Pat Name: FENG LEWIS Department: ED Room: [facility]2T B Gender: F Tetryl Nitrator Operator: ED : 1940 Requested By: DANNA MCKEON Order Number: [id number] Reading MD: Marvin Tran Measurements Intervals [place] Rate: 89 P: 70 CT: 150 QRS: -27 QRSD: 97 T: 45 QT: 386 QTc: 470 Interpretive Statements Sinus rhythm Probable left ventricular hypertrophy Electronically Signed On 06-11-2024 20:58:45 PDT by Marvin Tran Please click the below link to view image of tracing.
--- NOTE | 2024-06-11 18:42 | ECG ---
[facility] Test Date: 2024-06-11 Test Time: 10:04:14 Pat Name: FENG LEWIS Department: ED [facility] Gender: F Data Collection Technician: AVTAR : 1940 Requested By: DANNA MCKEON Order Number: [id number] Reading MD: Marvin Tran Measurements Intervals [place] Rate: 91 P: 80 SC: 156 QRS: -38 QRSD: 89 T: 34 QT: 362 QTc: 446 Interpretive Statements Sinus rhythm Left axis deviation Borderline ST depression, diffuse leads Electronically Signed On 06-11-2024 20:58:48 PDT by Marvin Tran Please click the below link to view image of tracing.
[2024-06-11] MEDS ORDERED: LOVA40TA72 PO (19:00)
[2024-06-11] MEDS ORDERED: LOSA-535 PO (19:00)
[2024-06-11] MEDS ORDERED: MONT-8 PO (19:01)
[2024-06-11] MEDS ORDERED: METO25TA93 PO (19:02)
[2024-06-11] MEDS ORDERED: HYDR50TA32 PO (19:03)
[2024-06-11] MEDS: ACETAMINOPHEN 325 MG TAB PO PRN (22:46)
[2024-06-11] MEDS: CLOPIDOGREL BISULFATE 75 MG TAB PO ONE (22:46)
[2024-06-11] MEDS: ATORVASTATIN 20 MG TAB PO SCH (22:47)
[2024-06-12] VITALS (9 sets, daily range): BP systolic 108–172; BP diastolic 45–91; PULSE 55–74; RESP 16–19; TEMP 97.5–98.6; O2SAT 90–96
[2024-06-12 05:54] LABS: Alanine Aminotransferase 23 U/L (7-40); Albumin 3.8 g/dL (3.2-4.8); Alkaline Phosphatase 74 U/L (46-116); Anion Gap 8 (5-15); Bilirubin, Total 0.9 mg/dL (0.2-1.0); Blood Urea Nitrogen 21 mg/dL (9-23); Calcium 9.2 mg/dL (8.7-10.4); Carbon Dioxide 25 mmol/L (20-31); Chloride 106 mmol/L (98-107); Sodium 139 mmol/L (136-145); Total Protein 6.3 g/dL (5.7-8.2)
[2024-06-12 06:07] LABS: Aspartate Aminotransferase 117 U/L (13-40); Glucose 107 mg/dL (74-106)
[2024-06-12] MEDS: MORPHINE SULFATE INJ 2 MG/ml SYRG IV PRN (10:18)
[2024-06-12] MEDS: CLOPIDOGREL BISULFATE 75 MG TAB PO SCH (10:20)
[2024-06-12] MEDS: METOPROLOL SUCCINATE XL 50 MG TAB PO SCH (10:21)
[2024-06-12] MEDS: ASPirin 81 mg TAB PO SCH (10:22)
[2024-06-12] MEDS ORDERED: ATOR20TA50 PO (13:05)
[2024-06-12] MEDS ORDERED: LOS25T PO (13:05)
[2024-06-12] MEDS ORDERED: NITR0.4S29 SL (13:05)
[2024-06-12] MEDS ORDERED: METO-6 PO (13:05)
[2024-06-12] MEDS ORDERED: CLOP75TA70 PO (13:05)
[2024-06-12] MEDS ORDERED: HYDR-4902 PO (13:05)
--- NOTE | 2024-06-12 13:12 | DVHDS2 ---
Discharge Summary Date of Admission Jun 11, 2024 at 15:28 Date of Discharge: Jun 12, 2024 Labs/Diagnostic Data: Laboratory Results Test 06/12/24 12:26 06/12/24 04:55 06/11/24 19:19 06/11/24 11:36 POC Glucose 101 mg/dl (70-106) Sodium Level 139 mmol/L (136-145) Potassium Level 4.0 mmol/L (3.5-5.1) Chloride Level 106 mmol/L (98-107) Carbon Dioxide Level 25 mmol/L (20-31) Anion Gap 8 (5-15) Blood Urea Nitrogen 21 mg/dL (9-23) Creatinine 1.05 mg/dL (0.550-1.02) Glomerular Filtration Rate Calc 53 mL/min (>90) BUN/Creatinine Ratio 20.0 (10.0-20.0) Serum Glucose 107 mg/dL (74-106) Calcium Level 9.2 mg/dL (8.7-10.4) Total Bilirubin 0.9 mg/dL (0.2-1.0) Aspartate Amino Transferase (AST) 117 U/L (13-40) Alanine Aminotransferase (ALT) 23 U/L (7-40) Alkaline Phosphatase 74 U/L (46-116) Total Protein 6.3 g/dL (5.7-8.2) Albumin 3.8 g/dL (3.2-4.8) Troponin I High Sensitivity 6304 ng/L (</=34) White Blood Count 6.2 10^3/uL (4.4-10.8) Red Blood Count 4.38 10^6/uL (4.0-5.20) Hemoglobin 12.8 g/dL (12.2-16.2) Hematocrit 39.1 % (36.0-46.0) Mean Corpuscular Volume 89.3 fL (80.0-100.0) Mean Corpuscular Hemoglobin 29.3 pg (28.0-32.0) Mean Corpuscular Hemoglobin Concent 32.8 g/dL (32.0-36.0) Red Cell Distribution Width 14.8 % (11.8-14.3) Platelet Count 214 10^3/uL (140-450) Mean Platelet Volume 6.9 fL (6.9-10.8) Neutrophils (%) (Auto) 56.2 % (37.0-80.0) Lymphocytes (%) (Auto) 32.5 % (10.0-50.0) Monocytes (%) (Auto) 8.7 % (0.0-12.0) Eosinophils (%) (Auto) 1.9 % (0.0-7.0) Basophils (%) (Auto) 0.7 % (0.0-2.0) Neutrophils # (Auto) 3.5 10 ^3/uL (1.6-8.6) Lymphocytes # (Auto) 2.0 10 ^3/uL (0.4-5.4) Monocytes # (Auto) 0.5 10 ^3/uL (0-1.3) Eosinophils # (Auto) 0.1 10 ^3/uL (0-0.8) Basophils # (Auto) 0 10 ^3/uL (0-0.2) Nucleated Red Blood Cells 0.0 % Test 06/11/24 10:32 06/11/24 09:30 Prothrombin Time 10.1 sec (9.3-11.8) Prothrombin Time INR 0.95 (0.9-1.15) Activated Partial Thromboplast Time 27.0 SEC (24.5-34.5) Urine Color Colorless (Yellow) Urine Clarity Clear (Clear) Urine pH 7.0 (5.0-9.0) Urine Specific [place] 1.005 (1.001-1.035) Urine Protein 1+ (Negative) Urine Ketones Negative (Negative) Urine Blood Trace /uL (Negative) Urine Nitrite Negative (Negative) Urine Bilirubin Negative (Negative) Urine Urobilinogen Normal mg/dL (Negative) Urine Leukocyte Esterase Negative /uL (Negative) Urine RBC <1 /hpf (0 - 4) Urine Microscopic WBC < 1 /HPF (0-5) Urine Squamous Epithelial Cells Few /hpf (<5) Urine Bacteria None seen /hpf (None Seen) Urine Glucose Normal mg/dL (Normal) Other Laboratory Tests 06/12/24 04:55 06/11/24 11:36 Brief Hx & Hospital Course: 83 year old female with a known history of diabetes mellitus type 2, hypertension, dyslipidemia, COPD, hypothyroidism, breast cancer status post lumpectomy currently on oral chemotherapy presented to the hospital with chest pressure found to have acute myocardial infarction. Patient was seen by Cardiology underwent left heart catheterization with placement of two drug- eluting stents in the RCA. Patient is currently stable to be discharged. Daughter and patient's was updated at bedside regarding current plan of care, who understand verbalized understanding and agreeable to plan. Condition at Discharge: Stable Final Diagnosis/Problems List 83 year old female with a known history of diabetes mellitus type 2, hypertension, dyslipidemia, COPD, hypothyroidism, breast cancer status post lumpectomy currently on oral chemotherapy presented to the hospital with chest pressure found to have 1. Acute myocardial infarction/non ST-elevation [place] 2. Diabetes mellitus type 2 3. Hypertension Four dyslipidemia 5. Hypothyroidism 6. COPD not in exacerbation 7. Breast cancer status post lumpectomy currently on oral chemotherapy Discharge Disposition: Home with [facility] Services SNF Discharge Will this Physician continue t: No Discharge Instruct/Medications Diet: Cardiac 2g Na,low cholest Diet comment: 1800 ADA diet Activity: See Comment Activity comment: No driving, no signing legal documents, no playing on heavy machinery while on narcotics Follow Up/Referral: Follow up with the PCP and Cardiology in 1-2 weeks Medications: As prescribed and reconciled Discharge Statement: "Patient was advised to return to the ER or call 911 if any headaches, dizziness, shortness of breath, chest pain, abdominal pain, bleeding, fevers, or worsening of medical condition. Patient was counseled about treatment plan, medications, possible side effects, patientverbalized understanding. All questions were answered to the best of my ability. This discharge took greater then 30 minutes in planning, reviewing documentation, counseling the patient, and discussing with other team members." ASSESSMENT ASSESSMENT Assessment 83 year old female with a known history of diabetes mellitus type 2, hypertension, dyslipidemia, COPD, hypothyroidism, breast cancer status post lumpectomy currently on oral chemotherapy presented to the hospital with chest pressure found to have 1. Acute myocardial infarction/non ST-elevation [place] 2. Diabetes mellitus type 2 3. Hypertension Four dyslipidemia 5. Hypothyroidism 6. COPD not in exacerbation 7. Breast cancer status post lumpectomy currently on oral chemotherapy Date of Service: Jun 12, 2024 Billing Provider: SANTIAGO MENDEZ MD Common Visit Codes: NOT BILLABLE SANTIAGO MENDEZ MD Jun 12, 2024 13:12
--- NOTE | 2024-06-12 15:29 | DVHPN2 ---
Progress Note Date Seen: Jun 12, 2024 Medical Necessity Reason Pt with a Central, PICC or Fol: No Subjective Patient reports: Feels better Other Systems: pt feels great with her daughter Objective vital signs Vital Sign Date Time Temp Pulse Resp B/P (MAP) Pulse Ox O2 Delivery O2 Flow Rate FiO2 06/12/24 13:00 98.2 68 17 172/91 (118) 94 98.2 06/11/24 20:00 Room Air* 0 21 Total Intake and Output 06/11/24 06/11/24 06/12/24 15:00 23:00 07:00 Intake Total 0 ml Balance 0 ml medications Current Medications Medications Dose Ordered Sig/Elsi Route Start Time Stop Time Status Last Admin Dose Admin Sodium Chloride 1,000 ml @ 120 mls/hr Q8H20M IV 06/11/24 15:30 06/11/24 23:27 120 MLS/HR Acetaminophen/ Hydrocodone Bitart 1 tab Q4HP PRN PO 06/11/24 15:30 Ondansetron HCl 4 mg Q4HP PRN IV 06/11/24 15:30 Acetaminophen 650 mg Q6HP PRN PO 06/11/24 15:30 06/11/24 22:46 650 MG Morphine Sulfate 2 mg Q4HPRN PRN IV 06/11/24 15:30 06/12/24 10:18 2 MG Nitroglycerin 0.4 mg Q5MINP PRN SL 06/11/24 15:30 Morphine Sulfate 2 mg Q30M PRN IV 06/11/24 15:30 Aspirin 81 mg DAILY PO 06/12/24 10:00 06/12/24 10:22 81 MG Clopidogrel Bisulfate 75 mg DAILY PO 06/12/24 10:00 06/12/24 10:20 75 MG Atorvastatin Calcium 40 mg HS PO 06/11/24 22:00 06/11/24 22:47 40 MG Metoprolol Succinate 25 mg DAILY PO 06/12/24 10:00 06/12/24 10:21 25 MG Losartan Potassium 25 mg DAILY PO 06/11/24 16:30 06/12/24 10:21 25 MG Hydralazine HCl 10 mg Q6HP PRN IV 06/11/24 16:30 Diagnostic Test (Pha) 1 strip ACHS 06/11/24 17:00 06/12/24 11:30 1 STRIP Insulin Human Regular HS SC 06/11/24 22:00 Insulin Human Regular AC SC 06/11/24 17:00 Dextrose 50 ml UD PRN IV 06/11/24 16:45 Examination: GENERAL:Abnormal, HEENT:Abnormal, LUNGS:Abnormal, CVS:Abnormal, ABDOMEN:Abnormal laboratory and microbiology Laboratory Tests 06/12/24 04:55 06/11/24 11:36 Test 06/12/24 04:55 Range/Units Serum Glucose 107 H 74-106 mg/dL Problem List/Assessment/Plan Problem List/Assessment/Plan nstemi acs cad htn hl obesity DM s/p pci cont dapt statin outpt fu fu echo Plan discussed with: Patient, Daughter My Orders My Orders Orders - KASIA HERNDON MD Procedure Category Date Status Time Aspirin Tablet PHA 06/12/24 In Process 10:00 Clopidogrel Bisulfate PHA 06/12/24 In Process (Plavix) 10:00 Atorvastatin (Lipitor) PHA 06/11/24 In Process 22:00 Metoprolol Xl PHA 06/12/24 In Process Succinate (Toprol Xl) 10:00 Losartan Tablet PHA 06/11/24 In Process (Cozaar Tablet) 16:30 Hydralazine Injection PHA 06/11/24 In Process (Apresoline Inject 16:30 Date of Service: Jun 12, 2024 Billing Provider: KASIA HERNDON MD Common Visit Codes: NOT BILLABLE KASIA HERNDON MD Jun 12, 2024 15:29
--- NOTE | 2024-06-12 15:48 | DVHSR ---
APPROVED REPORT EXAM: LIMITED Two-dimensional and M-mode echocardiogram with Doppler and color Doppler. Blood Pressure: 154/53 mmHg INDICATION evaluate crdiac function RISK FACTORS Obesity: Height: 5'0, Weight: 225 DIMENSIONS LVDd5.1 (3.8-5.7cm)LA (2D)4.0 (1.9-4.0cm)Aortic Root2.7 (2.0-3.7cm) LVDs3.1 (2.5-4.0cm)LA (MM) (1.9-4.0cm)Aortic Cusp Exc1.4 (1.5-2.0cm) EF (%) 60.0 (55-70%)Rt. Atrium3.7 (1.9-4.0cm)Asc. Aorta3.4 cm IVSd1.0 (0.7-1.1cm)RV (D) (1.8-2.4cm) PWd0.9 (0.7-1.1cm) Mitral Valve MitralMitral Stenosis E wave1.07m/sMV Mean GR.mmHg A wave1.23m/sMV Peak GR.45mmHg E/A ratio0.92D MVAcm2 DECEL [id number] 1/2 Timems Aortic Valve Aortic ValveAortic Stenosis V11.04m/Jose Mean GR.6mmHg V21.75m/Jose Peak GR.12mmHg LVOT Diameter1.7 (1.8-2.4cm)Doppler AVA1.35cm2 Pulmonic Valve V21.09m/s Tricuspid Valve TR Velocity2.49m/s [id number] Other Information Quality : Technically LimitedRhythm : Technically limited study due to body habitus.patient position. Conclusion lvef 60% mild LVH RV enlarged, normal function left atirum enlarged mild no severe valve abnormalities noted
== END 2024-06-12 19:30 | disposition home or self-care (01) | DRG 322 ==
LOC: EDBD 09:22 → ER 09:25 → OVERFLOW 15:28 → TELE-WESTW 17:38
PROVIDERS: ADMIT Internal Medicine; ATTEND Internal Medicine
PROC: 027035Z Dilation of Coronary Artery, One Artery with Two Drug-eluting Intraluminal Devices, Percutaneous Approach (ICD-10-PCS; principal; 2024-06-11)
PROC: 4A023N7 Measurement of Cardiac Sampling and Pressure, Left Heart, Percutaneous Approach (ICD-10-PCS; 2024-06-11)
PROC: B211YZZ Fluoroscopy of Multiple Coronary Arteries using Other Contrast (ICD-10-PCS; 2024-06-11)
DX: I21.4 Non-ST elevation (NSTEMI) myocardial infarction (principal); Z68.41 Body mass index [BMI] 40.0-44.9, adult; E11.9 Type 2 diabetes mellitus without complications; E03.9 Hypothyroidism, unspecified; E66.01 Morbid (severe) obesity due to excess calories; E78.5 Hyperlipidemia, unspecified; I10 Essential (primary) hypertension; J44.89 Other specified chronic obstructive pulmonary disease; F32.A Depression, unspecified; K21.9 Gastro-esophageal reflux disease without esophagitis; I25.10 Atherosclerotic heart disease of native coronary artery without angina pectoris; Z88.0 Allergy status to penicillin; Z88.5 Allergy status to narcotic agent; Z79.84 Long term (current) use of oral hypoglycemic drugs; Z79.899 Other long term (current) drug therapy; Z85.3 Personal history of malignant neoplasm of breast; Z83.3 Family history of diabetes mellitus; Z82.49 Family history of ischemic heart disease and other diseases of the circulatory system
CPT/HCPCS: 36415; 71045; 80048; 80053; 81001; 82962; 84484; 85025; 85610; 85730; 92941; 93005; 93306; 93458; 96361; 96372; 96374; 99152; 99291; 99292; G0378; J2250; J2405; Q9967